=== PATIENT | female | born 1980 | race Asian ===

== ENCOUNTER 2019-02-10 11:05 | Day surgery (SDC) | payer OTHER ==
[2019-02-10 12:04] LABS: PLATELET COUNT 358 K/uL (152-353)
[2019-02-10 12:59] LABS: POTASSIUM 3.7 mmol/L (3.6-5.2)
== END 2019-02-10 14:47 | disposition home or self-care (01) ==
LOC: OR 11:05
PROVIDERS: Internal Medicine Gastroenterology
PROC: 0DB68ZZ Excision of Stomach, Via Natural or Artificial Opening Endoscopic (ICD-10-PCS; principal; 2019-02-10)
PROC: 0DB88ZZ Excision of Small Intestine, Via Natural or Artificial Opening Endoscopic (ICD-10-PCS; 2019-02-10)
DX: K21.0 Gastro-esophageal reflux disease with esophagitis (principal); K29.50 Unspecified chronic gastritis without bleeding; R10.11 Right upper quadrant pain; R10.13 Epigastric pain; R19.7 Diarrhea, unspecified
CPT/HCPCS: 80053; 85027; J2001; J2250; J2704